=== PATIENT | male | born 1955 | race Two or more races ===

== ENCOUNTER 2023-01-10 21:02 | Inpatient (IN) | payer MEDICARE, OTHER ==
[~2023-01-10] VITALS: Ht 162.6 cm; Wt 66.6 kg
[2023-01-10 22:00] VITALS: PULSE 98; RESP 24; O2SAT 96
[2023-01-10 22:23] LABS: Basophils # (auto) 0.1 10 ^3/uL (0-0.2); Eosinophils # (auto) 0.8 10 ^3/uL (0-0.8); Eosinophils % (auto) 8.2 % (0.0-7.0); Hematocrit 37.3 % (41.0-53.0); Hemoglobin 12.4 g/dL (13.5-17.5); Lymphocytes # (auto) 1.8 10 ^3/uL (0.4-5.4); Lymphocytes % (auto) 19.5 % (10.0-50.0); Mean Corpuscular Hgb Conc. 33.2 g/dL (32.0-36.0); Mean Corpuscular Volume 93.5 fL (80.0-100.0); Monocytes # (auto) 0.8 10 ^3/uL (0-1.3); Monocytes % (auto) 8.9 % (0.0-12.0); Neutrophils # (auto) 5.8 10 ^3/uL (1.6-8.6); Neutrophils % (auto) 62.4 % (37.0-80.0); Nucleated Red Blood Cells % 0.1 %; Red Blood Cells 3.99 10^6/uL (4.5-5.90); Red Cell Distribution Width 13.5 % (11.8-14.3); White Blood Cell 9.2 10^3/uL (4.4-10.8)
[2023-01-10 22:42] LABS: Albumin 2.5 g/dL (3.4-5.0); Calcium 8.4 mg/dL (8.5-10.1); Potassium 4.3 mmol/L (3.5-5.1)
[2023-01-10 22:46] LABS: BUN/Creatinine Ratio 28.4 (10.0-20.0); Bilirubin, Total 0.3 mg/dL (0.2-1.0); Total Protein 7.3 g/dL (6.4-8.2)
[2023-01-11] MEDS ORDERED: ceFAZolin 1GM/50ML 50 ML IV ONE (00:15)
[2023-01-11] MEDS ORDERED: VANCOMYCIN PER PHARMACY 0 MG IV SCH (04:15)
[2023-01-11] MEDS ORDERED: ACETAMINOPHEN 325 MG TAB PO PRN (04:15)
[2023-01-11] MEDS ORDERED: ONDANSETRON HCL 4 MG/2 ML VIAL IV PRN (04:15)
[2023-01-11] MEDS: HYDROcodone-ACET 5/325MG TAB PO PRN ×2 (04:47→11:44)
[2023-01-11] MEDS ORDERED: VANCOMYCIN 1GM/250ML 250 ML IV ONE (05:00)
[2023-01-11 05:13] LABS: Urine Bacteria FEW /hpf (None Seen); Urine Blood 1+ /uL (Negative); Urine Clarity HAZY (Clear); Urine Color Straw (Yellow); Urine Protein, UAD TRACE (Negative); Urine Specific Gravity 1.017 (1.001-1.035); Urine Urobilinogen Normal (Negative); Urine WBC 26 /hpf (0 - 3)
[2023-01-11 07:30] VITALS: PULSE 98; RESP 16; O2SAT 94
[2023-01-11] MEDS ORDERED: PANTOPRAZOLE 40 MG TAB PO SCH (10:00)
[2023-01-11] MEDS: ENOXAPARIN SOD 40 MG/0.4 ML SYRINGE SC SCH (11:38)
[2023-01-11] MEDS ORDERED: cefTRIAXone 1GM/50ML D5W 50 ML IV ONE (13:30)
[2023-01-11 15:44] VITALS: BP 113/74; PULSE 89; RESP 20; TEMP 97.9; O2SAT 98
[2023-01-11 16:28] VITALS: BP 110/72; PULSE 80; RESP 16; TEMP 98.1; O2SAT 98
[2023-01-11] MEDS: VANCOMYCIN 1GM/250ML 250 ML IV SCH (16:57)
[2023-01-11 17:00] VITALS: BP 113/74; PULSE 88; RESP 16; TEMP 97.9; O2SAT 98
[2023-01-11 22:00] VITALS: BP 110/72; PULSE 80; RESP 16; TEMP 98.1; O2SAT 98
[2023-01-12] MEDS: VANCOMYCIN 1GM/250ML 250 ML IV SCH ×2 (04:45→19:18)
[2023-01-12 05:00] VITALS: BP 104/58; PULSE 64; RESP 14; TEMP 98; O2SAT 97
[2023-01-12 06:22] LABS: Hematocrit 34.5 % (41.0-53.0); Hemoglobin 11.6 g/dL (13.5-17.5); Mean Corpuscular Hemoglobin 31.2 pg (28.0-32.0); Mean Corpuscular Hgb Conc. 33.7 g/dL (32.0-36.0); Mean Corpuscular Volume 92.6 fL (80.0-100.0); Red Blood Cells 3.73 10^6/uL (4.5-5.90); Red Cell Distribution Width 13.5 % (11.8-14.3); White Blood Cell 7.9 10^3/uL (4.4-10.8)
[2023-01-12 06:23] LABS: BUN/Creatinine Ratio 31.9 (10.0-20.0); Calcium 8.3 mg/dL (8.5-10.1)
[2023-01-12 06:28] LABS: Band Neutrophils % (manual) 0; Basophils % (manual) 0 (0.0-2.0); Blast Cells 0; Metamyelocytes % 0; Myelocytes % 0; Promyelocytes % 0; Reactive Lymphocytes 0
[2023-01-12 07:31] LABS: Eosinophils % (manual) 18 (0-7); Lymphocytes % (manual) 21 (10.0-50.0); Monocytes % (manual) 13 (0-12)
[2023-01-12 07:32] LABS: Platelet Estimate Adequate; RBC Morphology Normal
[2023-01-12 08:42] VITALS: BP 101/61; PULSE 82; RESP 16; TEMP 98.6; O2SAT 96
[2023-01-12] MEDS: ENOXAPARIN SOD 40 MG/0.4 ML SYRINGE SC SCH (09:59)
[2023-01-12] MEDS: cefTRIAXone 1GM/50ML D5W 50 ML IV SCH (09:59)
[2023-01-12 13:00] VITALS: BP 111/69; PULSE 106; RESP 17; TEMP 98; O2SAT 100
[2023-01-12 20:00] VITALS: PULSE 114; RESP 18; O2SAT 97
[2023-01-12] MEDS: HYDROcodone-ACET 5/325MG TAB PO PRN (20:16)
[2023-01-12 22:00] VITALS: BP 109/63; PULSE 114; RESP 18; TEMP 98.3; O2SAT 97
[2023-01-13] MEDS: VANCOMYCIN 1GM/250ML 250 ML IV SCH ×2 (04:51→23:22)
[2023-01-13 05:00] VITALS: BP 108/59; PULSE 84; RESP 16; TEMP 98.3; O2SAT 100
[2023-01-13 08:00] VITALS: BP 116/66; PULSE 90; RESP 18; TEMP 98; O2SAT 97; O2SAT 98
[2023-01-13] MEDS: cefTRIAXone 1GM/50ML D5W 50 ML IV SCH (10:19)
[2023-01-13] MEDS: HYDROcodone-ACET 5/325MG TAB PO PRN ×2 (10:19→16:45)
[2023-01-13] MEDS: ENOXAPARIN SOD 40 MG/0.4 ML SYRINGE SC SCH (10:19)
[2023-01-13 12:00] VITALS: BP 107/61; PULSE 93; RESP 18; TEMP 98.1; O2SAT 96
[2023-01-13 16:00] VITALS: BP 139/77; PULSE 103; RESP 20; TEMP 98; O2SAT 98
[2023-01-13 20:00] VITALS: PULSE 107; RESP 20; O2SAT 97
[2023-01-13 22:00] VITALS: BP 104/60; PULSE 107; RESP 20; TEMP 98.5; O2SAT 100
[2023-01-14 05:00] VITALS: BP 110/69; PULSE 88; RESP 20; TEMP 98.9; O2SAT 99
[2023-01-14 08:00] VITALS: BP 115/67; PULSE 94; RESP 16; TEMP 99; O2SAT 97
[2023-01-14] MEDS: cefTRIAXone 1GM/50ML D5W 50 ML IV SCH (08:46)
[2023-01-14] MEDS: ENOXAPARIN SOD 40 MG/0.4 ML SYRINGE SC SCH (10:55)
[2023-01-14] MEDS: HYDROcodone-ACET 5/325MG TAB PO PRN ×3 (11:51→22:38)
[2023-01-14 12:00] VITALS: BP 117/65; PULSE 108; RESP 18; TEMP 97.8; O2SAT 100
[2023-01-14 16:00] VITALS: BP 109/67; PULSE 107; RESP 18; TEMP 98.3; O2SAT 99
[2023-01-14] MEDS: VANCOMYCIN 1GM/250ML 250 ML IV SCH (16:59)
[2023-01-14 20:00] VITALS: BP 110/65; PULSE 87; RESP 16; TEMP 98; O2SAT 100
[2023-01-14 22:00] VITALS: BP 110/65; PULSE 87; RESP 16; TEMP 98; O2SAT 100
[2023-01-15] MEDS: HYDROcodone-ACET 5/325MG TAB PO PRN ×2 (04:32→13:39)
[2023-01-15 05:00] VITALS: BP 105/62; PULSE 79; RESP 14; TEMP 97.8; O2SAT 99
[2023-01-15 08:00] VITALS: PULSE 84; RESP 18; O2SAT 97
[2023-01-15] MEDS ORDERED: LEVO750T8 PO (08:45)
[2023-01-15] MEDS ORDERED: HYDR-4902 PO (08:48)
[2023-01-15 09:17] VITALS: BP 108/67; PULSE 84; RESP 18; TEMP 97.9; O2SAT 97
[2023-01-15] MEDS ORDERED: levoFLOXacin 500MG 100 ML IV SCH (10:00)
[2023-01-15] MEDS: ENOXAPARIN SOD 40 MG/0.4 ML SYRINGE SC SCH (10:10)
[2023-01-15 17:03] VITALS: BP 132/75; PULSE 70; RESP 18; TEMP 97.1; O2SAT 93
== END 2023-01-15 20:35 | disposition home health service (06) | DRG 592 ==
LOC: ER 21:02 → EDBD 21:02 → OVERFLOW 01-11 04:09 → CENTRAL 01-11 16:24
PROVIDERS: ADMIT Family Medicine; ATTEND Family Medicine
PROC: 05H933Z Insertion of Infusion Device into Right Brachial Vein, Percutaneous Approach (ICD-10-PCS; principal; 2023-01-13)
PROC: B54MZZA Ultrasonography of Right Upper Extremity Veins, Guidance (ICD-10-PCS; 2023-01-13)
DX: L89.229 Pressure ulcer of left hip, unspecified stage (principal); E43 Unspecified severe protein-calorie malnutrition; N39.0 Urinary tract infection, site not specified; L89.613 Pressure ulcer of right heel, stage 3; F03.90 Unspecified dementia, unspecified severity, without behavioral disturbance, psychotic disturbance, mood disturbance, and anxiety; B95.62 Methicillin resistant Staphylococcus aureus infection as the cause of diseases classified elsewhere; Z74.01 Bed confinement status; Z86.12 Personal history of poliomyelitis; Z68.25 Body mass index [BMI] 25.0-25.9, adult
CPT/HCPCS: 36415; 73502; 73620; 80048; 80053; 80202; 81001; 83605; 85007; 85025; 85027; 87040; 87077; 87086; 87088; 87186; 87205; 96365; 96367; G0378; J0690; J0696; J1956

== ENCOUNTER 2023-04-05 21:20 | Inpatient (IN) | payer MEDICARE, MEDICAID ==
[~2023-04-05] VITALS: Ht 172.7 cm; Wt 58.5 kg
[~2023-04-05 21:20] MED LIST: HYDR-4902 PO; LEVO750T8 PO
[2023-04-05 22:00] VITALS: PULSE 95; RESP 20; O2SAT 100
[2023-04-05] MEDS ORDERED: VANCOMYCIN 1GM/250ML 250 ML IV ONE (22:30)
[2023-04-05 23:19] LABS: Basophils # (auto) 0.1 10 ^3/uL (0-0.2); Eosinophils # (auto) 0.7 10 ^3/uL (0-0.8); Eosinophils % (auto) 10.9 % (0.0-7.0); Hemoglobin 10.3 g/dL (13.5-17.5); Lymphocytes # (auto) 1.3 10 ^3/uL (0.4-5.4); Lymphocytes % (auto) 21.3 % (10.0-50.0); Mean Corpuscular Hemoglobin 28.9 pg (28.0-32.0); Mean Corpuscular Hgb Conc. 33.1 g/dL (32.0-36.0); Mean Corpuscular Volume 87.4 fL (80.0-100.0); Monocytes # (auto) 0.6 10 ^3/uL (0-1.3); Monocytes % (auto) 10.1 % (0.0-12.0); Neutrophils # (auto) 3.4 10 ^3/uL (1.6-8.6); Neutrophils % (auto) 56.7 % (37.0-80.0); Nucleated Red Blood Cells % 0.1 %; Red Blood Cells 3.55 10^6/uL (4.5-5.90); Red Cell Distribution Width 14.6 % (11.8-14.3)
[2023-04-05 23:43] LABS: Alanine Aminotransferase 13 U/L (7-40); Alkaline Phosphatase 101 U/L (46-116); Anion Gap 5 (5-15); Aspartate Aminotransferase 12 U/L (13-40); BUN/Creatinine Ratio 14.9 (10.0-20.0); Blood Urea Nitrogen 11 mg/dL (9-23); Calcium 8.3 mg/dL (8.7-10.4); Carbon Dioxide 27 mmol/L (20-30); Chloride 101 mmol/L (98-107); Glucose 112 mg/dL (74-106); Potassium 4.1 mmol/L (3.5-5.1); Sodium 133 mmol/L (136-145)
[2023-04-05 23:44] LABS: Bilirubin, Total 0.2 mg/dL (0.2-1.0); Total Protein 6.2 g/dL (5.7-8.2)
[2023-04-06] MEDS ORDERED: fentaNYL CITRATE 100 MCG/2 ML VL IV ONE (04:00)
[2023-04-06 08:00] VITALS: PULSE 96; RESP 20; O2SAT 100
[2023-04-06] MEDS ORDERED: DOCUSATE SOD 100 MG CAP PO PRN (09:30)
[2023-04-06] MEDS ORDERED: MORPHINE SULFATE INJ 2 MG/ml SYRG IV PRN (09:30)
[2023-04-06] MEDS ORDERED: VANCOMYCIN PER PHARMACY 0 MG IV SCH (09:30)
[2023-04-06] MEDS ORDERED: ONDANSETRON HCL 4 MG/2 ML VIAL IV PRN (09:30)
[2023-04-06] MEDS: ENOXAPARIN SOD 40 MG/0.4 ML SYRINGE SC SCH ×3 (10:00→11:57)
[2023-04-06] MEDS ORDERED: CEFEPIME 1GM/ 50ML 50 ML IV ONE (10:15)
[2023-04-06] MEDS: SODIUM CHLORIDE 0.9% 1,000 ML IV SCH ×2 (10:53→19:30)
[2023-04-06] MEDS: VANCOMYCIN 1GM/250ML 250 ML IV SCH (13:14)
[2023-04-06 14:46] VITALS: BP 120/76; PULSE 82; PULSE 86; RESP 16; RESP 18; TEMP 98; O2SAT 95
[2023-04-06 15:01] LABS: INR 1.09 (0.9-1.15); Partial Thromboplastin Time 32.1 SEC (24.5-34.5); Prothrombin Time 11.4 sec (9.3-11.8)
[2023-04-06 15:15] VITALS: BP 117/76; PULSE 99; RESP 20; TEMP 98.6; O2SAT 100
[2023-04-06] MEDS: CEFEPIME 1GM/ 50ML 50 ML IV SCH (17:12)
[2023-04-06 19:30] VITALS: PULSE 88; RESP 20; O2SAT 96
[2023-04-06 22:00] VITALS: BP 104/68; PULSE 65; RESP 18; TEMP 98.6; O2SAT 97
[2023-04-07] VITALS (7 sets, daily range): BP systolic 100–127; BP diastolic 59–84; PULSE 59–117; RESP 16–18; TEMP 36.3; O2SAT 96–100
[2023-04-07] MEDS: CEFEPIME 1GM/ 50ML 50 ML IV SCH ×4 (01:56→19:00)
[2023-04-07] MEDS: VANCOMYCIN 1GM/250ML 250 ML IV SCH ×2 (04:17→17:49)
[2023-04-07] MEDS: SODIUM CHLORIDE 0.9% 1,000 ML IV SCH ×2 (05:30→17:31)
[2023-04-07 07:06] LABS: Alanine Aminotransferase 17 U/L (7-40); Albumin 2.8 g/dL (3.2-4.8); Alkaline Phosphatase 82 U/L (46-116); Anion Gap 6 (5-15); Aspartate Aminotransferase 17 U/L (13-40); BUN/Creatinine Ratio 15.9 (10.0-20.0); Bilirubin, Total 0.4 mg/dL (0.2-1.0); Blood Urea Nitrogen 7 mg/dL (9-23); Calcium 8.4 mg/dL (8.5-10.1); Carbon Dioxide 23 mmol/L (20-30); Chloride 102 mmol/L (98-107); Glucose 111 mg/dL (74-106); Potassium 4.1 mmol/L (3.5-5.1); Sodium 131 mmol/L (136-145); Total Protein 5.9 g/dL (5.7-8.2)
[2023-04-07 07:41] LABS: Basophils # (auto) 0 10 ^3/uL (0-0.2); Basophils % (auto) 0.5 % (0.0-2.0); Eosinophils # (auto) 0.5 10 ^3/uL (0-0.8); Eosinophils % (auto) 8.4 % (0.0-7.0); Hematocrit 32.7 % (41.0-53.0); Hemoglobin 10.3 g/dL (13.5-17.5); Lymphocytes # (auto) 1.1 10 ^3/uL (0.4-5.4); Lymphocytes % (auto) 19.2 % (10.0-50.0); Mean Corpuscular Hemoglobin 28.2 pg (28.0-32.0); Mean Corpuscular Hgb Conc. 31.4 g/dL (32.0-36.0); Mean Corpuscular Volume 90.1 fL (80.0-100.0); Monocytes # (auto) 0.7 10 ^3/uL (0-1.3); Monocytes % (auto) 12.7 % (0.0-12.0); Neutrophils # (auto) 3.4 10 ^3/uL (1.6-8.6); Neutrophils % (auto) 59.2 % (37.0-80.0); Nucleated Red Blood Cells % 0.1 %; Red Blood Cells 3.64 10^6/uL (4.5-5.90); White Blood Cell 5.7 10^3/uL (4.4-10.8)
[2023-04-07] MEDS: ENOXAPARIN SOD 40 MG/0.4 ML SYRINGE SC SCH (11:39)
[2023-04-07] MEDS ORDERED: IBUPROFEN 400 MG TAB PO PRN (12:15)
[2023-04-07] MEDS ORDERED: MORPHINE SULFATE INJ 2 MG/ml SYRG IV PRN (21:00)
[2023-04-08] VITALS (8 sets, daily range): BP systolic 100–148; BP diastolic 69–84; PULSE 81–102; RESP 17–20; TEMP 37.1; O2SAT 96–100
[2023-04-08] MEDS: CEFEPIME 1GM/ 50ML 50 ML IV SCH ×3 (03:06→18:00)
[2023-04-08] MEDS: SODIUM CHLORIDE 0.9% 1,000 ML IV SCH ×3 (03:06→21:30)
[2023-04-08] MEDS: ENOXAPARIN SOD 40 MG/0.4 ML SYRINGE SC SCH (08:18)
[2023-04-08] MEDS: VANCOMYCIN 1GM/250ML 250 ML IV SCH ×2 (08:20→22:22)
[2023-04-08 10:40] LABS: Basophils # (auto) 0 10 ^3/uL (0-0.2); Basophils % (auto) 0.6 % (0.0-2.0); Eosinophils # (auto) 0.3 10 ^3/uL (0-0.8); Eosinophils % (auto) 4.5 % (0.0-7.0); Hematocrit 33.6 % (41.0-53.0); Hemoglobin 10.6 g/dL (13.5-17.5); Lymphocytes % (auto) 17.4 % (10.0-50.0); Mean Corpuscular Hemoglobin 28.3 pg (28.0-32.0); Mean Corpuscular Hgb Conc. 31.5 g/dL (32.0-36.0); Mean Corpuscular Volume 89.7 fL (80.0-100.0); Monocytes # (auto) 0.9 10 ^3/uL (0-1.3); Monocytes % (auto) 15.4 % (0.0-12.0); Neutrophils # (auto) 3.7 10 ^3/uL (1.6-8.6); Neutrophils % (auto) 62.1 % (37.0-80.0); Nucleated Red Blood Cells % 0.1 %; Red Blood Cells 3.74 10^6/uL (4.5-5.90); Red Cell Distribution Width 15.1 % (11.8-14.3)
[2023-04-08 11:05] LABS: Anion Gap 4 (5-15); Carbon Dioxide 25 mmol/L (20-30); Chloride 102 mmol/L (98-107); Potassium 4.3 mmol/L (3.5-5.1); Sodium 131 mmol/L (136-145)
[2023-04-08 11:06] LABS: Calcium 8.4 mg/dL (8.7-10.4)
[2023-04-08 11:11] LABS: BUN/Creatinine Ratio 13.7 (10.0-20.0); Blood Urea Nitrogen 7 mg/dL (9-23); Glucose 104 mg/dL (74-106)
[2023-04-08 11:12] LABS: Magnesium 1.9 mg/dL (1.6-2.6)
[2023-04-08] MEDS: ACETAMINOPHEN 325 MG TAB PO PRN (17:01)
[2023-04-09] VITALS (7 sets, daily range): BP systolic 91–115; BP diastolic 43–69; PULSE 69–102; RESP 17–20; TEMP 98–98.4; O2SAT 97–100
[2023-04-09] MEDS: CEFEPIME 1GM/ 50ML 50 ML IV SCH ×3 (03:54→21:05)
[2023-04-09 06:42] LABS: Chloride 102 mmol/L (98-107); Potassium 4.4 mmol/L (3.5-5.1); Sodium 133 mmol/L (136-145)
[2023-04-09 06:43] LABS: Basophils # (auto) 0 10 ^3/uL (0-0.2); Basophils % (auto) 0.6 % (0.0-2.0); Calcium 8.8 mg/dL (8.5-10.1); Eosinophils # (auto) 0.6 10 ^3/uL (0-0.8); Eosinophils % (auto) 8.4 % (0.0-7.0); Hematocrit 34.1 % (41.0-53.0); Hemoglobin 10.8 g/dL (13.5-17.5); Lymphocytes # (auto) 1.4 10 ^3/uL (0.4-5.4); Lymphocytes % (auto) 18.8 % (10.0-50.0); Mean Corpuscular Hemoglobin 28.4 pg (28.0-32.0); Mean Corpuscular Hgb Conc. 31.6 g/dL (32.0-36.0); Monocytes % (auto) 13.8 % (0.0-12.0); Neutrophils # (auto) 4.4 10 ^3/uL (1.6-8.6); Neutrophils % (auto) 58.4 % (37.0-80.0); Nucleated Red Blood Cells % 0.1 %; Red Blood Cells 3.79 10^6/uL (4.5-5.90); Red Cell Distribution Width 14.9 % (11.8-14.3); White Blood Cell 7.5 10^3/uL (4.4-10.8)
[2023-04-09 06:48] LABS: BUN/Creatinine Ratio 15.6 (10.0-20.0); Blood Urea Nitrogen 7 mg/dL (9-23); Glucose 96 mg/dL (74-106)
[2023-04-09 06:55] LABS: Anion Gap 7 (5-15); Carbon Dioxide 24 mmol/L (20-30)
[2023-04-09] MEDS: SODIUM CHLORIDE 0.9% 1,000 ML IV SCH ×2 (07:30→21:05)
[2023-04-09] MEDS ORDERED: GADOTERATE MEG 10 MMOL/20ml INJ (0.5MMOL/ml) IV ONE (10:20)
[2023-04-09] MEDS: VANCOMYCIN 1GM/250ML 250 ML IV SCH (11:51)
[2023-04-09] MEDS: ENOXAPARIN SOD 40 MG/0.4 ML SYRINGE SC SCH (11:52)
[2023-04-09] MEDS: ACETAMINOPHEN 325 MG TAB PO PRN (11:52)
[2023-04-10] MEDS: VANCOMYCIN 1GM/250ML 250 ML IV SCH ×2 (02:22→17:18)
[2023-04-10] MEDS: SODIUM CHLORIDE 0.9% 1,000 ML IV SCH ×3 (03:30→23:30)
[2023-04-10 05:00] VITALS: BP 111/68; PULSE 106; RESP 18; TEMP 98.7; O2SAT 99
[2023-04-10] MEDS: CEFEPIME 1GM/ 50ML 50 ML IV SCH (05:27)
[2023-04-10 08:17] LABS: Basophils # (auto) 0.1 10 ^3/uL (0-0.2); Basophils % (auto) 0.8 % (0.0-2.0); Eosinophils # (auto) 1.1 10 ^3/uL (0-0.8); Hematocrit 30.6 % (41.0-53.0); Hemoglobin 9.9 g/dL (13.5-17.5); Lymphocytes # (auto) 1.2 10 ^3/uL (0.4-5.4); Lymphocytes % (auto) 14.7 % (10.0-50.0); Mean Corpuscular Hgb Conc. 32.3 g/dL (32.0-36.0); Mean Corpuscular Volume 86.8 fL (80.0-100.0); Monocytes # (auto) 0.7 10 ^3/uL (0-1.3); Monocytes % (auto) 8.3 % (0.0-12.0); Neutrophils # (auto) 5.1 10 ^3/uL (1.6-8.6); Neutrophils % (auto) 62.2 % (37.0-80.0); Nucleated Red Blood Cells % 0.1 %; Red Blood Cells 3.53 10^6/uL (4.5-5.90); Red Cell Distribution Width 14.7 % (11.8-14.3); White Blood Cell 8.1 10^3/uL (4.4-10.8)
[2023-04-10 08:36] LABS: Chloride 99 mmol/L (98-107); Potassium 3.9 mmol/L (3.5-5.1); Sodium 129 mmol/L (136-145)
[2023-04-10 08:37] LABS: Anion Gap 5 (5-15); Calcium 8.6 mg/dL (8.5-10.1); Carbon Dioxide 25 mmol/L (20-30)
[2023-04-10 08:42] LABS: BUN/Creatinine Ratio 17.9 (10.0-20.0); Blood Urea Nitrogen 7 mg/dL (9-23); Glucose 117 mg/dL (74-106)
[2023-04-10 08:44] VITALS: BP 102/66; PULSE 104; RESP 22; TEMP 98.9; O2SAT 100
[2023-04-10] MEDS: ENOXAPARIN SOD 40 MG/0.4 ML SYRINGE SC SCH (10:02)
[2023-04-10 13:00] VITALS: BP 112/76; PULSE 104; RESP 18; TEMP 98.8; O2SAT 100
[2023-04-10 17:00] VITALS: BP 102/73; PULSE 99; RESP 21; TEMP 98.7; O2SAT 100
[2023-04-10 20:00] VITALS: PULSE 106; RESP 14; O2SAT 98
[2023-04-10 22:00] VITALS: BP 108/71; PULSE 106; RESP 18; TEMP 98.2; O2SAT 100
[2023-04-11 05:00] VITALS: BP 100/70; PULSE 97; RESP 14; TEMP 98.7; O2SAT 98
[2023-04-11] MEDS: VANCOMYCIN 1GM/250ML 250 ML IV SCH ×2 (05:41→20:40)
[2023-04-11 06:08] LABS: Basophils # (auto) 0.1 10 ^3/uL (0-0.2); Basophils % (auto) 0.9 % (0.0-2.0); Hematocrit 31.1 % (41.0-53.0); Hemoglobin 10.2 g/dL (13.5-17.5); Lymphocytes # (auto) 1.2 10 ^3/uL (0.4-5.4); Lymphocytes % (auto) 14.3 % (10.0-50.0); Mean Corpuscular Hemoglobin 28.5 pg (28.0-32.0); Mean Corpuscular Hgb Conc. 32.7 g/dL (32.0-36.0); Mean Corpuscular Volume 87.2 fL (80.0-100.0); Monocytes # (auto) 0.9 10 ^3/uL (0-1.3); Monocytes % (auto) 10.7 % (0.0-12.0); Neutrophils # (auto) 5.3 10 ^3/uL (1.6-8.6); Neutrophils % (auto) 62.1 % (37.0-80.0); Nucleated Red Blood Cells % 0.1 %; Red Blood Cells 3.57 10^6/uL (4.5-5.90); Red Cell Distribution Width 14.6 % (11.8-14.3); White Blood Cell 8.5 10^3/uL (4.4-10.8)
[2023-04-11] MEDS: ENOXAPARIN SOD 40 MG/0.4 ML SYRINGE SC SCH (08:52)
[2023-04-11 09:00] VITALS: BP 94/65; PULSE 98; RESP 16; TEMP 98.7; O2SAT 100
[2023-04-11] MEDS: SODIUM CHLORIDE 0.9% 1,000 ML IV SCH (09:30)
[2023-04-11 09:49] LABS: Chloride 100 mmol/L (98-107); Sodium 131 mmol/L (136-145)
[2023-04-11 09:51] LABS: Anion Gap 6 (5-15); Calcium 8.2 mg/dL (8.5-10.1); Carbon Dioxide 25 mmol/L (20-30)
[2023-04-11 09:56] LABS: BUN/Creatinine Ratio 16.2 (10.0-20.0); Blood Urea Nitrogen 6 mg/dL (9-23); Glucose 113 mg/dL (74-106)
[2023-04-11 13:00] VITALS: BP 100/62; PULSE 99; RESP 17; TEMP 98.4; O2SAT 100
[2023-04-11 17:00] VITALS: BP 97/65; PULSE 99; RESP 17; TEMP 98.7; O2SAT 100
[2023-04-11 20:00] VITALS: PULSE 96; RESP 18; O2SAT 100
[2023-04-11 22:00] VITALS: BP 103/71; PULSE 96; RESP 16; TEMP 99; O2SAT 100
[2023-04-11 23:00] LABS: Urine Bacteria FEW /hpf (None Seen); Urine Blood 3+ /uL (Negative); Urine Clarity HAZY (Clear); Urine Color Yellow (Yellow); Urine Mucus FEW (None Seen); Urine Protein, UAD 1+ (Negative); Urine Urobilinogen Normal (Negative); Urine WBC 15 /hpf (0 - 3); Urine pH 5.5 (5.0-8.0)
[2023-04-12 05:00] VITALS: BP 96/59; PULSE 105; RESP 16; TEMP 98.6; O2SAT 100
[2023-04-12 06:47] LABS: Basophils # (auto) 0.1 10 ^3/uL (0-0.2); Basophils % (auto) 0.8 % (0.0-2.0); Eosinophils # (auto) 0.6 10 ^3/uL (0-0.8); Eosinophils % (auto) 9.8 % (0.0-7.0); Hematocrit 28.9 % (41.0-53.0); Hemoglobin 9.1 g/dL (13.5-17.5); Lymphocytes # (auto) 1.1 10 ^3/uL (0.4-5.4); Lymphocytes % (auto) 16.3 % (10.0-50.0); Mean Corpuscular Hemoglobin 27.6 pg (28.0-32.0); Mean Corpuscular Hgb Conc. 31.5 g/dL (32.0-36.0); Mean Corpuscular Volume 87.6 fL (80.0-100.0); Monocytes # (auto) 0.8 10 ^3/uL (0-1.3); Monocytes % (auto) 12.2 % (0.0-12.0); Neutrophils % (auto) 60.9 % (37.0-80.0); Nucleated Red Blood Cells % 0.1 %; Red Cell Distribution Width 14.9 % (11.8-14.3); White Blood Cell 6.6 10^3/uL (4.4-10.8)
[2023-04-12 06:59] LABS: Chloride 102 mmol/L (98-107); Potassium 3.9 mmol/L (3.5-5.1); Sodium 133 mmol/L (136-145)
[2023-04-12 07:00] LABS: Anion Gap 5 (5-15); Calcium 8.1 mg/dL (8.7-10.4); Carbon Dioxide 26 mmol/L (20-30)
[2023-04-12 07:05] LABS: Blood Urea Nitrogen 8 mg/dL (9-23); Glucose 96 mg/dL (74-106)
[2023-04-12] MEDS: VANCOMYCIN 1GM/250ML 250 ML IV SCH ×2 (08:55→23:58)
[2023-04-12] MEDS: ENOXAPARIN SOD 40 MG/0.4 ML SYRINGE SC SCH (08:55)
[2023-04-12 09:00] VITALS: BP 105/65; PULSE 90; RESP 17; TEMP 98; O2SAT 96
[2023-04-12 13:00] VITALS: BP 99/65; PULSE 91; RESP 18; TEMP 98.2; O2SAT 99
[2023-04-12 16:40] VITALS: BP 104/70; PULSE 89; RESP 16; TEMP 97.8; O2SAT 100
[2023-04-12 20:00] VITALS: PULSE 91; RESP 18; O2SAT 99
[2023-04-12 22:00] VITALS: BP_SYST 101; BP_SYST 126; BP_DIAS 62; BP_DIAS 78; PULSE 76; PULSE 91; RESP 18; TEMP 97.6; TEMP 97.8; O2SAT 92; O2SAT 99
[2023-04-13] VITALS (7 sets, daily range): BP systolic 92–114; BP diastolic 58–70; PULSE 86–105; RESP 16–18; TEMP 98–98.8; O2SAT 96–100
[2023-04-13] MEDS: ENOXAPARIN SOD 40 MG/0.4 ML SYRINGE SC SCH (08:52)
[2023-04-13] MEDS: VANCOMYCIN 1GM/250ML 250 ML IV SCH (15:14)
[2023-04-14] MEDS: VANCOMYCIN 1GM/250ML 250 ML IV SCH ×2 (04:53→18:34)
[2023-04-14 05:00] VITALS: BP 109/70; PULSE 93; RESP 16; TEMP 98.2; O2SAT 99
[2023-04-14 08:30] VITALS: RESP 18; O2SAT 96
[2023-04-14] MEDS: ENOXAPARIN SOD 40 MG/0.4 ML SYRINGE SC SCH (09:52)
[2023-04-14] MEDS ORDERED: LINE1TAB6 PO (11:28)
[2023-04-14 13:00] VITALS: BP 122/67; PULSE 82; RESP 18; TEMP 98; O2SAT 98
[2023-04-14 20:00] VITALS: PULSE 98; RESP 18; O2SAT 99
[2023-04-14 22:00] VITALS: BP 108/65; PULSE 98; RESP 18; TEMP 99; O2SAT 99
[2023-04-15 05:00] VITALS: BP 106/69; PULSE 94; RESP 17; TEMP 98.6; O2SAT 100
[2023-04-15 09:21] VITALS: BP 107/60; PULSE 92; RESP 16; TEMP 98.4; O2SAT 97
== END 2023-04-15 09:53 | disposition hospice, home (50) | DRG 592 ==
LOC: EDBD 21:20 → ER 21:20 → OVERFLOW 04-06 09:34 → WEST WING 04-06 12:06
PROVIDERS: ADMIT Internal Medicine Pulmonary Disease; ATTEND Family Medicine
DX: L89.223 Pressure ulcer of left hip, stage 3 (principal); S72.001A Fracture of unspecified part of neck of right femur, initial encounter for closed fracture; L97.829 Non-pressure chronic ulcer of other part of left lower leg with unspecified severity; E87.1 Hypo-osmolality and hyponatremia; E44.0 Moderate protein-calorie malnutrition; Z68.1 Body mass index [BMI] 19.9 or less, adult; W18.39XA Other fall on same level, initial encounter; L97.519 Non-pressure chronic ulcer of other part of right foot with unspecified severity; D64.9 Anemia, unspecified; Z74.01 Bed confinement status; Z86.12 Personal history of poliomyelitis; Y93.89 Activity, other specified; Y92.89 Other specified places as the place of occurrence of the external cause; Y99.8 Other external cause status
CPT/HCPCS: 36415; 73502; 73620; 73700; 80048; 80053; 80202; 81001; 82270; 83605; 83735; 85025; 85610; 85730; 87040; 87077; 87081; 87186; 87205; 96365; 96367; 96375; G0378